=== PATIENT | female | born 1935 | race Caucasian/White ===

== ENCOUNTER 2016-12-11 08:53 | Emergency (ER) | payer OTHER, BC ==
[~2016-12-11] VITALS: Ht 157.5 cm; Wt 53.0 kg
[~2016-12-11 08:53] MED LIST: ATORVASTATIN CA80 MG PO; DILTIAZEM 24HR180 MG PO; FLONASE16 G1 BOTH NARES; HYDROCHLOROTHIA50 MG PO; HYDROCODON-ACE1 EAC7 PO; JANUVIA100 MG PO; LISINOPRIL10 MG PO; LO-DOSE ASPIRIN81 M1 PO; MECLIZINE HCL12.5 M1 PO; NIACIN250 M1 PO; VITAMIN D-32000 UNI1 PO
[2016-12-11 09:58] LABS: EOSINOPHIL (%) 1.6 % (0-5); EOSINOPHIL COUNT 0.1 K/uL (0-0.3); HEMATOCRIT 40.1 % (36.0-46.0); IMMATURE GRANULOCYTE (%) 0.6 % (0.0-0.7); INSTRUMENT ABS NEUTROPHIL CT 3.5 K/uL; MCHC 33.4 G/DL (30.0-36.0); MCV 86.8 FL (83-99); MEAN PLAT.VOLUME 11.3 uM^3 (9.5-12.4); MONOCYTE (%) 6.9 % (3-12); MONOCYTE COUNT 0.3 K/uL (0-0.8); NEUTROPHIL (%) 69.7 % (45-76); NEUTROPHIL COUNT 3.5 K/uL (1.8-6.4); PLATELET COUNT 167 K/uL (156-360); RBC DIS.WIDTH-CV 13.2 % (11.8-14.6); RBC DIS.WIDTH-SD 41.8 % (39-53); RED BLOOD COUNT 4.62 M/uL (3.80-5.20)
[2016-12-11 10:09] LABS: CHLORIDE 108 mEq/L (99-109); POTASSIUM 3.8 mEq/L (3.7-5.4); SODIUM 141 mEq/L (136-147)
[2016-12-11 10:10] LABS: GLUCOSE 112 mg/dL (70-99)
[2016-12-11 10:12] LABS: ANION GAP 9 MEQ/L (2-14)
[2016-12-11 10:14] LABS: GFR ESTIMATE (CALCULATED) 57 mL/min/
[2016-12-11 10:15] LABS: UREA NITROGEN (BUN) 18 mg/dL (9-23)
[2016-12-11] MEDS ORDERED: ANTIVERT25 MG PO (11:34)
[2016-12-11 12:25] VITALS: BP 155/57
== END 2016-12-11 12:26 | disposition home or self-care (01) ==
LOC: EME 08:53
PROVIDERS: Emergency Medicine
DX: R42 Dizziness and giddiness (principal); E11.9 Type 2 diabetes mellitus without complications; I10 Essential (primary) hypertension
CPT/HCPCS: 70450; 80048; 85025; 93005; 99281; 99284

== ENCOUNTER 2017-08-02 22:11 | Emergency (ER) | payer OTHER, BC ==
[~2017-08-02] VITALS: Ht 162.6 cm; Wt 53.1 kg
[~2017-08-02 22:11] MED LIST changes: +ANTIVERT25 MG PO
[2017-08-02 22:41] VITALS: BP 128/73
[2017-08-02] MEDS ORDERED: ULTRAM50 MG PO (22:57)
[2017-08-02] MEDS ORDERED: PEN-VEE K,VEET500 MG PO (22:57)
== END 2017-08-02 23:30 | disposition home or self-care (01) ==
LOC: EME 22:11 → RME 22:11
DX: K08.89 Other specified disorders of teeth and supporting structures (principal); R22.0 Localized swelling, mass and lump, head; E78.5 Hyperlipidemia, unspecified; I10 Essential (primary) hypertension
CPT/HCPCS: 99281; 99284